=== PATIENT | male | born 1965 | race Caucasian/White ===

== ENCOUNTER → 2016-04-08 | Outpatient (CLI) | payer MEDICARE ==
[~2016-04-08] MED LIST: CERTAGEN PO; CITALOPRAM HBR40 MG PO; DEPAKOTE PO; LODINE400 MG PO; NEURONTIN PO; SYNTHROID PO; TOPAMAX PO; VOLTAREN75 MG PO
--- NOTE | ~2016-04-08 | CT50 ---
[facility] A Service of [facility] & [facility] RADIOLOGY TEXT RESULTS PATIENT: FRANCISCO LANDERS LOCATION: [facility] : 67 UNIT #: [id number] AGE: [address]: MILI RANGEL APRN SEX: M ORDER DR: [id number] [facility] [address] [place], [place] [address] [id number] O MR#: [id number] Acc #: [id number] NAME: FRANCISCO LANDERS. : 1965 SEX: M STUDY DATE/TIME: 04/08/2016 11:54 UNIT: [facility] ROOM: STUDY DESCRIPTION: CT Cervical Spine W Cont Attending Physician: Mili Rangel A.P.R.N. Referring Physician: Mili Rangel A.P.R.N. Ordering Physician: Mili Rangel A.P.R.N. Primary Care Physician: Ari Gee M.D. MEDICAL IMAGING REPORT This report is preliminary unless electronic signature is present EXAM CT of the cervical spine HISTORY Neck pain chronically. TECHNIQUE Transaxial imaging of the cervical spine was performed with intrathecal contrast media. This CT exam was performed with one or more of the following radiation dose reduction techniques: automatic control, adjustment of mA and/or kV according to patient size, and iterative reconstruction. FINDINGS C2-3 level appears unremarkable. At C3-4 there is a posterior disc osteophyte complex. This is broad based and there is evidence of some foraminal stenosis and central spinal stenosis. At C4-5 there is a small central disc protrusion. There is narrowing of the outlet foramen bilaterally and mild central spinal stenosis. At C5-6 there is a broad-based disc osteophyte complex centrally. This contacts the anterior aspect of the cord. There is evidence of outlet foraminal narrowing bilaterally at C6-7 similarly there is a broad-based disc osteophyte complex. There is predominantly right-sided foraminal narrowing. C7-T1 is unremarkable. There is no evidence of significant cord flattening. Bony elements are intact. CONCLUSION Evidence of underlying degenerative disc disease C3-4, 4-5, 5-6 and 6-7 with multilevel neural foraminal stenosis as noted above. At least moderate mild to moderate central spinal stenosis at C3-4, 4-5 and 5-6. Dictated by... [facility] A Service of [facility] & [facility] RADIOLOGY TEXT RESULTS PATIENT: FRANCISCO LANDERS LOCATION: [facility] #: [id number] : 67 UNIT #: [id number] AGE: [address]: MILI RANGEL APRN SEX: M ORDER DR: Aden West M.D. THIS IS AN ELECTRONICALLY VERIFIED REPORT Aden West M.D. at 04/10/2016 4:49 PM JANETH/clara TD: 04/08/2016 18:10 JOB #: [id number] MEDICAL IMAGING REPORT COPY
--- NOTE | ~2016-04-08 | XA152 ---
[facility] A Service of [facility] & [facility] RADIOLOGY TEXT RESULTS PATIENT: FRANCISCO BLANDON LOCATION: [facility] : 67 UNIT #: [id number] AGE: [address]: MILI RANGEL APRN SEX: M ORDER DR: [id number] [facility] [address] [place], [place] [address] [id number] O MR#: [id number] Acc #: [id number] NAME: FRANCISCO BLANDON. : 1965 SEX: M STUDY DATE/TIME: 04/08/2016 10:58 UNIT: [facility] ROOM: STUDY DESCRIPTION: XA Myelogram Cervical Attending Physician: Mili Rangel A.P.R.N. Referring Physician: Mili Rangel A.P.R.N. Ordering Physician: Mili Rangel A.P.R.N. Primary Care Physician: Ari Gee M.D. MEDICAL IMAGING REPORT This report is preliminary unless electronic signature is present EXAM Cervical myelogram, date of study 04/08/2016. COMPARISON STUDIES None. HISTORY Neck pain chronically. TECHNIQUE Procedure, attendant risks, and options were discussed at length with Mr. Blandon. He understands and wishes to proceed. Informed written consent was obtained. Patient was placed in the prone position in the Angio Suite. Skin was prepped and draped. Utilizing maximal sterile barrier technique appropriate for the procedure and guidelines and under local anesthesia, a 22-gauge spinal needle was advanced sequentially under fluoroscopy into the lumbar subarachnoid space at the L3-4 level. Approximately 10 mL of Isovue-300 were injected under fluoroscopic control. Spot radiographs were obtained of the lumbar region and do suggest some mild narrowing of the thecal sac at L4-L5 and L5-S1. There is filling of the exiting nerve root sleeves. Contrast was advanced in the cervical region under fluoroscopic control. AP, lateral, and oblique views of the cervical spine were performed. FINDINGS Examination shows narrowing of the thecal sac at the C3-C4, C4-C5, and C5-C6 levels. There is evidence of exiting nerve root impingement at C3-C4 and C4-C5 bilaterally. This is present to a lesser degree at C5-C6 on the left. Anterior extradural defects are seen at C3-C4, C4-C5, and C5-C6. [facility]. [facility] A Service of [facility] RADIOLOGY TEXT RESULTS PATIENT: FRANCISCO BLANDON [facility] #: [id number] : 67 UNIT #: [id number] AGE: [address]: MILI RANGEL APRN SEX: M ORDER DR: CONCLUSION 1. Cervical spondylosis and degenerative disc disease at C4-C5, C5-C6, and C6-C7. Evidence of exiting nerve root compression at C3-C4 and C4-C5. Minimal exiting nerve root compression on the left at C5-C6. Please see accompanying CT report for further characterization. 2. A total of 12 spot radiographs were obtained during the examination. Total fluoroscopy time was 4.3 minutes. Total exposure estimated at 120 mGy-cm air kerma. STAT * RESULT Dictated by... Aden West M.D. THIS IS AN ELECTRONICALLY VERIFIED REPORT Aden West M.D. at 04/08/2016 4:31 PM Harvey TD: 04/08/2016 15:52 JOB #: [id number] MEDICAL IMAGING REPORT COPY
[2016-04-08 10:50] LABS: HEMATOCRIT 42.7 % (38.0-50.0); HEMOGLOBIN 14.6 gm/dL (13.0-16.0); MEAN CELL VOLUME 88.3 FL (83-96); MEAN CORPUSCULAR HEMOGLOBIN 30.3 PG (28-34); MEAN CORPUSCULAR HGB CONC 34.3 g/dL (30-36); MEAN PLATELET VOLUME 8.2 FL (6.5-11.5); RED BLOOD COUNT 4.83 X10e (3.90-5.60); RED CELL DISTRIBUTION WIDTH 13.5 % (11.0-15.5); WHITE BLOOD COUNT 6.4 X10e3 (4.0-10.5)
[2016-04-08 11:08] LABS: PARTIAL THROMBOPLASTIN TIME 24.8 SECONDS (23.5-31.3); PROTHROMBIN TIME (PATIENT) 10.2 SECONDS (9.6-11.5)
[2016-04-08 11:39] LABS: BLOOD UREA NITROGEN 23 mg/dL (9-23); BUN/CREATININE RATIO 17.69; CALCIUM SERUM 9.6 mg/dL (8.4-10.2); CARBON DIOXIDE 27 mmol/L (22-31); CHLORIDE 107 mmol/L (100-111); CREATININE SERUM 1.3 mg/dL (0.6-1.4); GLOM FILT RATE Estimated ABOVE60 mL/min (>60); GLUCOSE FASTING 100 mg/dL (70-110); POTASSIUM 4.2 mmol/L (3.5-5.1); SODIUM 138 mmol/L (135-145)
== END | disposition home or self-care (01) ==
LOC: CRAD 09:39
PROVIDERS: Nurse Practitioner Family
DX: M48.02 Spinal stenosis, cervical region (principal); M47.12 Other spondylosis with myelopathy, cervical region; G95.9 Disease of spinal cord, unspecified; M50.021 Cervical disc disorder at C4-C5 level with myelopathy; M50.022 Cervical disc disorder at C5-C6 level with myelopathy; M50.023 Cervical disc disorder at C6-C7 level with myelopathy; G54.2 Cervical root disorders, not elsewhere classified; M50.01 Cervical disc disorder with myelopathy, high cervical region
CPT/HCPCS: 36415; 72126; 72240; 80048; 85027; 85610; 85730; Q9967

== ENCOUNTER → 2016-07-18 | Outpatient (CLI) | payer MEDICARE ==
--- NOTE | ~2016-07-18 | CR58 ---
[facility] A Service of [facility] & [facility] RADIOLOGY TEXT RESULTS PATIENT: FRANCISCO LANDERS LOCATION: [facility] : 67 UNIT #: [id number] AGE: [address]: MILI RANGEL APRN SEX: M ORDER DR: [id number] [facility] [address] [place], [place] [address] [id number] O MR#: [id number] Acc #: [id number] NAME: FRANCISCO LANDERS. : 1965 SEX: M STUDY DATE/TIME: 07/18/2016 13:39 UNIT: [facility] ROOM: STUDY DESCRIPTION: CR Cervical Spine 2 or 3 Views Attending Physician: Mili Rangel A.P.R.N. Referring Physician: Mili Rangel A.P.R.N. Ordering Physician: Mili Rangel A.P.R.N. Primary Care Physician: Ari Gee M.D. MEDICAL IMAGING REPORT This report is preliminary unless electronic signature is present EXAM Cervical spine series, 4 views, 07/18/16. HISTORY Previous cervical fusion, 2 month history of cervical myelopathy. FINDINGS There has been anterior fusion from C4 through C6. There is no devise loosening or failure, prevertebral swelling or other acute abnormality. The fusion is new since CT exam of 04/08/16. Alignment is more normal than at the time of that exam. Dictated by... Jesus Alberto Lackey M.D. THIS IS AN ELECTRONICALLY VERIFIED REPORT Jesus Alberto Lackey M.D. at 07/22/2016 12:15 PM TEV/jonah TD: 07/18/2016 18:21 JOB #: [id number] MEDICAL IMAGING REPORT Page 1 of 1 COPY
== END | disposition home or self-care (01) ==
LOC: CRAD 13:12
DX: M47.12 Other spondylosis with myelopathy, cervical region (principal)
CPT/HCPCS: 72040